=== PATIENT | male | born 1950 | race Caucasian/White ===

== ENCOUNTER 2017-03-12 18:30 | Emergency (ER) | payer OTHER ==
[2017-03-12 18:41] VITALS: RESP 16; TEMP 97.7; O2SAT 96
--- NOTE | 2017-03-12 19:30 | EDPHY ---
H & P Time Seen by Provider: 03/12/17 19:18 HPI/ROS: CHIEF COMPLAINT: Left leg redness and swelling HISTORY OF PRESENT ILLNESS: 66-year-old man presents for evaluation of redness on his left leg. For the last 12 hr he has had redness and swelling on the lateral calf which is a little bit tender. Does not radiate, not associated with chest pain or shortness of breath or fever. No recent injury. REVIEW OF SYSTEMS: Eye: no change in vision ENT: no sore throat Cardiac: no chest pain or syncope Pulmonary: no cough or SOB Abdomen: no vomiting, diarrhea, abdominal pain Musculoskeletal: HPI Skin: HPI Neuro: no headache Constitutional: no fever : no urinary symptoms A comprehensive 10 point review of systems is otherwise negative aside from elements mentioned in the history of present illness. PAST MEDICAL HISTORY: Hypertension and hyperlipidemia, bypass surgery Social history: Here with spouse General Appearance: Alert and conversant, cooperative. Eyes: No scleral icterus. ENT, Mouth: Normal mucous membranes. Respiratory: Normal respiratory effort, breath sounds equal, lungs are clear to auscultation. Cardiovascular: Regular rate and rhythm. Gastrointestinal: Abdomen is soft and non tender. Neurological: Alert, face symmetric, normal motor and sensory in extremities. Skin: Patient has erythema 10 x 8 cm left lateral calf without blister or lymphangitis or eschar or central punctum. Musculoskeletal: No fluctuance, no bony tenderness, compartments are soft in the left leg. No crepitus. Psychiatric: Not agitated. Emergency Department course/MDM: Plan for ultrasound to evaluate for DVT or Martin cyst, also could be superficial cellulitis. 2038: US shows no DVT only edema, Helgans Discussed patient, will treat with oral antibiotics Keflex and Bactrim and clinical follow-up with his primary care doctor. Start in ED, prescription to go. Smoking Status: Never smoked Constitutional: Initial Vital Signs Temperature (C) 36.5 C 03/12/17 18:36 Heart Rate 53 L 03/12/17 18:36 Respiratory Rate 16 03/12/17 18:36 Blood Pressure 126/86 H 03/12/17 18:36 O2 Sat (%) 96 03/12/17 18:36 O2 Delivery Mode Room Air Allergies/Adverse Reactions: No Known Allergies Allergy (Unverified 03/12/17 18:35) Home Medications: Medication Instructions Recorded Atorvastatin Calcium 03/12/17 Cephalexin [Keflex] 500 mg PO QID #40 cap 03/12/17 Famotidine 03/12/17 [id number] WITH MINERALS 03/12/17 Metoprolol Succinate 03/12/17 Sildenafil Citrate 03/12/17 Sulfamethox/Tmp 800/160 mg 1 tab PO BID@1000,2200 #20 tab 03/12/17 [Bactrim Ds] Medical Decision Making Differential Diagnosis: Differential considered including but not limited to DVT, cellulitis, Martin cyst , fasciitis. Departure - Departure Disposition: Home, Routine, Self-Care Clinical Impression: Cellulitis of left leg Condition: Good Instructions: Cellulitis (ED) Referrals: Ashkan Cornell DO [Doctor of Osteopathy] - 03/15/17 Prescriptions: Cephalexin [Keflex] 500 mg PO QID #40 cap Sulfamethox/Tmp 800/160 mg [Bactrim Ds] 1 tab PO BID@1000,2200 #20 tab
[2017-03-12] MEDS ORDERED: SULFAMETHOX/TMP 800/160 MG 1 TAB PO ONE (20:38)
[2017-03-12] MEDS ORDERED: CEPHALEXIN 500 MG CAP PO ONE (20:38)
[2017-03-12 20:51] VITALS: BP 131/80; PULSE 55
== END 2017-03-12 20:50 | disposition home or self-care (01) ==
DX: L03.116 Cellulitis of left lower limb (principal); I10 Essential (primary) hypertension

== ENCOUNTER → 2018-03-08 | Outpatient (CLI) | payer OTHER | LOC: FIMAGING 08:30 → EEVIPCON 08:45 | PROVIDERS: ATTEND Family Medicine | DX: Z03.89 Encounter for observation for other suspected diseases and conditions ruled out (principal) ==